=== PATIENT | female | born 1985 | race Two or more races ===

== ENCOUNTER → 2017-02-20 | Outpatient (CLI) | payer OTHER ==
--- NOTE | 2017-02-20 12:19 | REP ---
LEFT FINGERS, FIVE VIEWS: HISTORY: Injury. There is a nondisplaced fracture of the distal phalange of the first digit. There is no dislocation. The joint spaces are normal in appearance. IMPRESSION: Fracture of the distal phalange of the first digit. Signed by Drake Barrios MD 02/20/2017 12:33 P
== END ==
LOC: M LRY 11:26
PROVIDERS: ATTEND Physician Assistant
DX: M79.645 Pain in left finger(s) (principal)

== ENCOUNTER → 2018-11-19 | Outpatient (CLI) | payer OTHER ==
[2018-11-19 11:49] LABS: THYROID STIMULATING HORMONE 2.65 uIU/ML (0.358-3.740); THYROXINE (T4) 19.4 UG/DL (4.5-12.0)
== END ==
LOC: M LRY 08:23
PROVIDERS: ATTEND Obstetrics & Gynecology
DX: E03.9 Hypothyroidism, unspecified (principal)